=== PATIENT | female | born 2000 | race Caucasian/White ===

== ENCOUNTER 2023-07-22 06:12 | Day surgery (SDC) | payer BC ==
[2023-07-21 12:40] VITALS: BMI 21.6
[2023-07-22] MEDS ORDERED: Midazolam HCl 2 mg/2 ml Vial ONE (06:49)
[2023-07-22] MEDS ORDERED: fentaNYL 50 mcg/mL 1 mL Vial ONE (06:49)
[2023-07-22] MEDS ORDERED: Ropivacaine 0.5% HCl/PF (150 MG/30 ML VIAL) ONE (06:49)
[2023-07-22] MEDS ORDERED: Sodium Chloride 0.9% 100 ML ONE (07:18)
[2023-07-22] MEDS ORDERED: CEFAZOLIN 2 GM VIAL ONE (07:18)
[2023-07-22] MEDS ORDERED: HYDROmorphone 0.5 MG/0.5 ML SYRINGE ONE (07:26)
[2023-07-22] MEDS ORDERED: Dexmedetomidine 200 MCG/2 ML VIAL ONE (07:26)
[2023-07-22] MEDS ORDERED: Albuterol Sulfate 200 PUFF INH ONE (07:32)
[2023-07-22] MEDS ORDERED: Ketorolac Tromethamine 30 MG/ML VIAL ONE (07:33)
[2023-07-22] MEDS ORDERED: Ondansetron PF 4 MG/2 ML Vial ONE (07:33)
[2023-07-22] MEDS ORDERED: PROPOFOL 200 MG/20 ML VIAL ONE (07:33)
[2023-07-22] MEDS ORDERED: Lidocaine 1% PF 5 ML VIAL ONE (07:33)
[2023-07-22] MEDS ORDERED: Dexamethasone 20 MG/5 ML VIAL ONE (07:33)
== END 2023-07-22 10:30 | disposition home or self-care (01) ==
LOC: SDC 06:12
PROVIDERS: ATTEND Orthopaedic Surgery
PROC: 0QSH04Z Reposition Left Tibia with Internal Fixation Device, Open Approach (ICD-10-PCS; principal; 2023-07-22)
DX: S82.52XA Displaced fracture of medial malleolus of left tibia, initial encounter for closed fracture (principal); J45.909 Unspecified asthma, uncomplicated; E07.9 Disorder of thyroid, unspecified; Z79.890 Hormone replacement therapy; Z88.1 Allergy status to other antibiotic agents; Z79.899 Other long term (current) drug therapy; W18.30XA Fall on same level, unspecified, initial encounter; X50.1XXA Overexertion from prolonged static or awkward postures, initial encounter
CPT/HCPCS: C1713; J1100; J1170; J1885; J2250; J2405; J2704; J2795; J3010; J3490